=== PATIENT | male | born 1935 | race Two or more races ===

== ENCOUNTER → 2017-07-30 | Emergency (ER) | payer OTHER ==
[~2017-07-30] VITALS: Ht 170.2 cm; Wt 67.1 kg
[~2017-07-30] MED LIST: ASA81 MG; CALAN80 MG PO; CENTRUM SILVER1 EAC2; CLONAZEPAM2 MG; COZAAR100 MG; DILTIAZEM 24HR300 M1; FUROSEMIDE20 MG; INDAPAMIDE1.25 MG; ISORDIL10 MG; ISOSORBIDE DINI30 MG; LASIX20 MG; MEDROLPACK PO; NORFLEX100MG PO; PAXIL10 MG/5 ML PO; TUSSI PRES-B L120 M1 PO; VASOTEC5 MG; XANAX0.25 MG PO; ZITHROMAX TRI-500 MG PO; ZOCOR20 MG; [UNRECOGNIZED DRUG - OTHER]
== END | disposition home or self-care (01) ==
LOC: ER 13:00
DX: M54.5 Low back pain (principal)